=== PATIENT | female | born 1995 | race Caucasian/White ===

== ENCOUNTER 2019-11-24 11:51 | Inpatient (IN) | payer BC ==
--- NOTE | 2019-11-24 12:30 | ED ---
Psychiatric Complaint - HPI Summary HPI Summary: Patient is a 24 y/o F presenting to the ED for a psychiatric complaint. Patient states that she has SI which began on the morning of 11/24/19. Patient reports her SI initially began at 11 y/o until 18 y/o, but resolved at that time with the use of medication. She also reports back pain for the last 3 weeks, decreased concentration, sleep disturbance, and appetite changes. No aggravating or alleviating factors are reported. Patient went to see her PCP, Bety Hoang, who recommended the patient be seen at [facility] for a mental health evaluation. PMHx is significant for depression. - History Of Current Complaint Chief Complaint: EDMentalHealth Time Seen by Provider: 11/24/19 12:10 Hx Obtained From: Patient Onset/Duration: Gradual Onset, Still Present Timing: Constant Severity Initially: Moderate Severity Currently: Moderate Character: Depressed Aggravating Factor(s): Nothing Alleviating Factor(s): Nothing Associated Signs And Symptoms: Positive: Sleep Disturbance, Appetite Change Related History: Positive For: Prior Psychiatric Issues Has Suicidal: Reports: Thoughts - Allergies/Home Medications Allergies/Adverse Reactions: Allergies Allergy/AdvReac Type Severity Reaction Status Date / Time aspirin Allergy Unknown Verified 11/24/19 12:06 Reaction Details MS Acetaminophen Allergy Unknown Verified 11/24/19 12:06 [From Anexsia] Reaction Details MS Azithromycin Allergy Unknown Verified 11/24/19 12:06 [From Zithromax] Reaction Details MS Hydrocodone [From Anexsia] Allergy Unknown Verified 11/24/19 12:06 Reaction Details Home Medications: Home Medications [id number] Es (Nf) [Excedrin Extra Strength 250-250-65 mg (NF)] 1 tab PO Q6H PRN 11/24/19 [History Confirmed 11/24/19] Vilazodone (NF) [Viibryd (NF)] 20 mg PO DAILY 11/24/19 [History Confirmed ] PMH/Surg Hx/FS Hx/Imm Hx Previously Healthy: Yes Sensory History: Reports: Hx Contacts or Glasses Denies: Hx Legally Blind, Hx Deafness Opthamlomology History: Reports: Hx Contacts or Glasses Denies: Hx Legally Blind EENT History: Denies: Hx Deafness Psychiatric History: Reports: Hx Depression - Surgical History Surgical History: None Surgery Procedure, Year, and Place: None Infectious Disease History: No Infectious Disease History: Denies: Traveled Outside the [place] in Last 30 Days - Family History Known Family History: Negative: Renal Disease - Social History Occupation: Employed Full-time Alcohol Use: None Hx Substance Use: No Substance Use Type: Reports: None Hx Tobacco Use: Yes Smoking Status (MU): Current Some Day Smoker Review of Systems Positive: Other - Positive appetite change Positive: Myalgia - Back pain Psychological: Other - Positive SI, decreased concentration, and sleep disturbance Positive: Depressed All Other Systems Reviewed And Are Negative: Yes Physical Exam - Summary Physical Exam Summary: Appearance: The patient is well-nourished in no acute distress and in no acute pain. Skin: The skin is warm and dry, and skin color reflects adequate perfusion. HEENT: The head is normocephalic and atraumatic. The pupils are equal and reactive. The conjunctivae are clear and without drainage. Nares are patent and without drainage. Mouth reveals moist mucous membranes, and the throat is without erythema and exudate. The external ears are intact. The ear canals are patent and without drainage. The tympanic membranes are intact. Neck: The neck is supple with full range of motion and non-tender. There are no carotid bruits. There is no neck vein distension. Respiratory: Chest is non-tender. Lungs are clear to auscultation and breath sounds are symmetrical and equal. Cardiovascular: Heart is regular rate and rhythm. There is no murmur or rub auscultated. There is no peripheral edema and pulses are symmetrical and equal. Abdomen: The abdomen is soft and non-tender. There are normal bowel sounds heard in all four quadrants and there is no organomegaly palpated. Musculoskeletal: There is no back tenderness noted. Extremities are non-tender with full range of motion. There is good capillary refill. There is no peripheral edema or calf tenderness elicited. Neurological: Patient is alert and oriented to person, place and time. The patient has symmetrical motor strength in all four extremities. Cranial nerves are grossly intact. Deep tendon reflexes are symmetrical and equal in all four extremities. Psychiatric: The patient has an appropriate affect and does not exhibit any anxiety or depression. Triage Information Reviewed: Yes Vital Signs On Initial Exam: Initial Vitals Temp Pulse Resp BP Pulse Ox 97.9 F 102 18 141/92 99 11/24/19 12:01 11/24/19 12:01 11/24/19 12:01 11/24/19 12:01 11/24/19 12:01 Vital Signs Reviewed: Yes Procedures - Sedation Patient Received Moderate/Deep Sedation with Procedure: No Diagnostics - Vital Signs Vital Signs Temp Pulse Resp BP Pulse Ox 11/24/19 12:01 97.9 F 102 18 141/92 99 - Laboratory Result Diagrams: 11/24/19 12:28 11/24/19 12:28 Lab Statement: Any lab studies that have been ordered have been reviewed, and results considered in the medical decision making process. Re-Evaluation - Re-Evaluation First Eval Re-Evaluation Time: 12:24 Change: Unchanged Comment: At 12:24, patient is medically cleared for a mental health evaluation. Course/Dx - Course Course Of Treatment: Ms. Pickett has been medically cleared and transferred to the Flex Unit where she is awaiting [facility]. - Differential Dx/Clinical Impression Provider Diagnosis: Depression Discharge ED - Sign-Out/Discharge Documenting (check all that apply): Sign-Out Patient Signing out patient TO: Anthony Norris - Discharge Plan Condition: Stable Referrals: Allison Otto PA [Primary Care Provider] - - Billing Disposition and Condition Condition: STABLE - Attestation Statements Document Initiated by Scribe: Yes Documenting Scribe: Lakisha Latham Provider For Whom Kasey is Documenting (Include Credential): Anthony Craft MD Scribe Attestation: Lakisha Haskins, scribed for Anthony Craft MD on 11/24/19 at 1843. Scribe Documentation Reviewed: Yes Provider Attestation: The documentation as recorded by the Lakisha wang accurately reflects the service I personally performed and the decisions made by me, Anthony Craft MD Status of Scribe Document: Viewed
[2019-11-24 12:38] LABS: ABS Basophils 0.1 10^3/ul (0-0.2); ABS Eosinophils 0.1 10^3/ul (0-0.6); ABS Lymphocytes 1.7 10^3/ul (1.0-4.8); ABS Monocytes 0.5 10^3/ul (0-0.8); ABS Neutrophils 3.5 10^3/ul (1.5-7.7); Hematocrit 44 % (35-47); Hemoglobin 14.9 g/dL (12.0-16.0); Lymphocyte % 29.5 %; Mean Corpuscular HGB Conc 34 g/dL (31-36); Mean Corpuscular Hemoglobin 26 pg (27-31); Mean Corpuscular Volume 78 fL (80-97); Mean Platelet Volume 7.5 fL (7.4-10.4); Nucleated Red Blood Cells % 0.1; Platelet Count 291 10^3/uL (150-450); Red Blood Count 5.66 10^6 /uL (3.70-4.87); Red Cell Distribution Width 14 % (10-15); White Blood Count 5.9 10^3/uL (3.5-10.8)
[2019-11-24 12:41] LABS: Urine Appearance Cloudy; Urine Bilirubin Negative (Negative); Urine Blood Negative (Negative); Urine Color Straw; Urine Glucose Negative (Negative); Urine Ketones Negative (Negative); Urine Nitrite Negative (Negative); Urine Protein Negative (Negative); Urine Specific Gravity 1.005 (1.010-1.030); Urine Urobilinogen Negative (Negative)
[2019-11-24 13:01] LABS: ALT 17 U/L (7-52); AST 16 U/L (13-39); Albumin 4.5 g/dL (3.2-5.2); Albumin/Globulin Ratio 1.5 (1-3); Alkaline Phosphatase 75 U/L (34-104); Anion Gap 6 mmol/L (2-11); BUN/Creatinine Ratio 11.7 (8-20); Blood Urea Nitrogen 9 mg/dL (6-24); CO2 Carbon Dioxide 27 mmol/L (22-32); Calcium 9.5 mg/dL (8.6-10.3); Chloride 103 mmol/L (101-111); EGFR African American 110.5 (>60); EGFR Non-African American 91.3 (>60); Globulin 3.1 g/dL (2-4); Glucose 88 mg/dL (70-100); Potassium 3.8 mmol/L (3.5-5.0); Sodium 136 mmol/L (135-145); Total Protein 7.6 g/dL (6.4-8.9)
[2019-11-24 13:03] LABS: Urine Benzodiazepine Screen None Detected (None Detect); Urine Opiates Screen None Detected (None Detect)
[2019-11-24 13:07] LABS: HCG Pregnancy < 0.60 mIU/mL
[2019-11-24 13:21] LABS: Acetaminophen < 15 mcg/mL; Alcohol < 10 mg/dL (<10); Salicylate < 2.50 mg/dL (<30)
--- NOTE | 2019-11-24 19:28 | ED ---
Progress - Progress Note Progress Note: The patient is a sign-out from Dr. Anthony Craft MD, to Dr. Anthony Norris MD , at change of shift at 1900 on 11/24/19, pending psychiatric evaluation and disposition. Dr. Grayson and mental health staff have evaluated the patient, and they have determined that she is appropriate for admission. Patient agreeable with this plan. Re-Evaluation - Re-Evaluation First Eval Re-Evaluation Time: 12:24 Change: Unchanged Comment: At 12:24, patient is medically cleared for a mental health evaluation. Course/Dx - Course Course Of Treatment: The patient is a sign-out from Dr. Anthony Craft MD, to Dr. Anthony Norris MD, at change of shift at 1900 on 11/24/19, pending psychiatric evaluation and disposition. Dr. Grayson and mental health staff have evaluated the patient, and they have determined that she is appropriate for admission. Patient agreeable with this plan. - Diagnoses Provider Diagnoses: Depression - Provider Notifications Discussed Care Of Patient With: Nigel Grayson - psychiatry Instructed by Provider To: Other - Dr. Grayson and mental health staff evaluated the patient, she will be voluntarily admitted Discharge ED - Sign-Out/Discharge Documenting (check all that apply): Patient Departure - Patient admitted to [facility] psychiatric unit., Receiving Sign-Out Receiving patient FROM: Anthony Craft - Patient is a sign-out from Dr. Anthony Craft MD, at change of shift at 1900 on 11/24/19, pending MHE and disposition. - Discharge Plan Condition: Stable Disposition: PSYCHIATRIC FACILITY-[facility] - Billing Disposition and Condition Condition: STABLE Disposition: Psychiatric Facility [facility] - Attestation Statements Document Initiated by Luisibe: Yes Documenting Scribe: Polina Conn Provider For Whom Kasey is Documenting (Include Credential): Dr. Anthony Norris MD Scribe Attestation: Polina Haskins scribed for Dr. Anthony Norris MD on 11/25/19 at 0413. Scribe Documentation Reviewed: Yes Provider Attestation: The documentation as recorded by the Polina wang accurately reflects the service I personally performed and the decisions made by me, Dr. Anthony Norris MD Status of Scribe Document: Viewed Procedures - Sedation Patient Received Moderate/Deep Sedation with Procedure: No
[2019-11-24] MEDS ORDERED: Al Hydrox/Mg Hydrox/Simet LIQ* 30 ML UDC PO PRN (22:02)
[2019-11-24] MEDS ORDERED: Nicotine* 2MG (FRUIT FLAVOR) GUM PO PRN (22:04)
[2019-11-24] MEDS ORDERED: hydrOXYzine HCL TAB* 50 MG PO PRN (22:05)
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
[2019-11-25] MEDS: Vitamin THERAPEUTIC TAB PO SCH (13:30)
[2019-11-25] MEDS: ARIPiprazole TAB* 5 MG PO SCH (15:44)
[2019-11-25] MEDS: CMC:Vilazodone (NF) 40 MG TAB PO SCH (15:44)
[2019-11-25] MEDS: Acetaminophen TAB* 325 MG PO PRN (18:38)
[2019-11-26 07:57] LABS: HDL Cholesterol 53.4 mg/dL
[2019-11-26] MEDS: ARIPiprazole TAB* 5 MG PO SCH (09:10)
[2019-11-26] MEDS: CMC:Vilazodone (NF) 40 MG TAB PO SCH (09:10)
[2019-11-26] MEDS: Acetaminophen TAB* 325 MG PO PRN (09:10)
[2019-11-26] MEDS: Vitamin THERAPEUTIC TAB PO SCH (09:11)
[2019-11-26] MEDS ORDERED: Loperamide LIQ* 2 MG/10 ML UDC PO PRN (21:37)
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
[2019-11-27] MEDS: Vitamin THERAPEUTIC TAB PO SCH (07:40)
[2019-11-27] MEDS: ARIPiprazole TAB* 5 MG PO SCH (09:10)
[2019-11-27] MEDS: CMC:Vilazodone (NF) 40 MG TAB PO SCH (09:10)
[2019-11-27] MEDS: Acetaminophen TAB* 325 MG PO PRN (09:13)
[2019-11-28] MEDS: Acetaminophen TAB* 325 MG PO PRN (07:58)
[2019-11-28] MEDS: CMC:Vilazodone (NF) 40 MG TAB PO SCH (09:49)
[2019-11-28] MEDS: ARIPiprazole TAB* 5 MG PO SCH (09:52)
[2019-11-28] MEDS: Vitamin THERAPEUTIC TAB PO SCH (09:55)
[2019-11-28 10:45] VITALS: BP 110/64
--- NOTE | 2019-11-28 11:05 | PN ---
BSU: Group Therapy Note - Service Type Service Type: [id number] Group Psychotherapy - Cognitive Behavioral Group Therapy ( CBT):Patient was attentive and participatory in CBT programming this morning, and remained in good behavioral control. Patient expressed positive insights regarding relevant treatment interventions and goals.
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
== END 2019-11-28 17:05 | disposition home or self-care (01) | DRG 751 ==
LOC: ED 11:51 → BSU 22:26
PROVIDERS: ADMIT Psychiatry & Neurology Psychiatry; ATTEND Psychiatry & Neurology Psychiatry
PROC: GZHZZZZ Group Psychotherapy (ICD-10-PCS; principal; 2019-11-28)
DX: F33.2 Major depressive disorder, recurrent severe without psychotic features (principal); R45.851 Suicidal ideations; F17.210 Nicotine dependence, cigarettes, uncomplicated; Z88.8 Allergy status to other drugs, medicaments and biological substances; Z88.1 Allergy status to other antibiotic agents; Z88.6 Allergy status to analgesic agent; Z91.5 Personal history of self-harm; Z81.1 Family history of alcohol abuse and dependence; Z79.899 Other long term (current) drug therapy
CPT/HCPCS: 36415; 80053; 80061; 80307; 80320; 80329; 81003; 83036; 84443; 84702; 85025; 90853; 93005; 99222; 99231; 99238; 99284; A9270-GY; G0480